=== PATIENT | female | born 1995 | race Caucasian/White ===

== ENCOUNTER 2023-11-10 06:12 | Inpatient (IN) | payer BC, OTHER ==
[2023-11-10] MEDS ORDERED: miSOPROStoL 200 MCG TAB PO PRN (06:27)
[2023-11-10] MEDS ORDERED: CARBOPROST TROMETHAMINE 250 MCG/ML 1 ML AMP IM PRN (06:27)
[2023-11-10] MEDS ORDERED: METHYLERGONOVINE 0.2 MG/ML 1 ML AMP IM PRN (06:27)
[2023-11-10] MEDS ORDERED: TRANEXAMIC 1,000 MG/100ML-NACL 1,000 MG in EMPTY BAG 1 BAG IV PRN (06:27)
[2023-11-10] MEDS ORDERED: OXYTOCIN 10 UNIT/ML 1 ML VIAL IM PRN (06:27)
[2023-11-10] MEDS ORDERED: LIDOCAINE 0.5% (PF) 5 MG/ML (50 ML SDV) SQ PRN (06:27)
[2023-11-10] MEDS ORDERED: TERBUTALINE 1 MG/ML VIAL SQ PRN (06:27)
[2023-11-10 06:40] LABS: Glucose,Whole Blood 86 mg/dL (70-110)
[2023-11-10] MEDS: LACTATED RINGERS 1,000 ML IV SCH ×2 (06:42→19:48)
[2023-11-10] MEDS: OXYTOCIN 30 UNITS/500 ML NS 30 UNIT in SALINE 1 500ML.BAG IV SCH (06:54)
[2023-11-10 07:00] LABS: Basophils # (A) 0.1 k/uL (0-0.2); Basophils % (A) 1 %; Eosinophils # (A) 0.1 k/uL (0-0.7); Eosinophils % (A) 1 %; HCT 44.2 % (34.0-46.0); HGB 14.9 gm/dL (11.4-16.0); Lymphocytes # (A) 2.9 k/uL (1.0-4.8); Lymphocytes % (A) 27 %; MCH 31.8 pg (25.0-35.0); MCHC 33.8 g/dL (31.0-37.0); MCV 94.1 fL (80.0-100.0); Mean Platelet Volume 9.1; Monocytes # (A) 0.7 k/uL (0-1.0); Monocytes % (A) 6 %; Neutrophils # (A) 6.9 k/uL (1.3-7.7); Neutrophils % (A) 64 %; Platelet Count 249 k/uL (150-450); RBC 4.69 m/uL (3.80-5.40); RDW 12.9 % (11.5-15.5); WBC 10.8 k/uL (3.8-10.6)
[2023-11-10] MEDS ORDERED: SODIUM CHLORIDE 0.9% 250 ML BAG ONE (10:10)
[2023-11-10] MEDS ORDERED: fentaNYL (PF) 50 MCG/ML 5 ML AMP ONE (10:10)
[2023-11-10] MEDS ORDERED: ROPIVACAINE 5 MG/ML 30 ML VIAL ONE (10:10)
[2023-11-10] MEDS: CITRIC ACID-SODIUM CITRATE 15 ML CUP PO ONE (15:35)
[2023-11-10] MEDS ORDERED: OXYTOCIN 30 UNITS/500 ML NS BAG IV ONE (15:50)
[2023-11-10] MEDS ORDERED: MORPHINE SULFATE (PF) 0.3 MG/0.3 ML SYR ONE (15:50)
[2023-11-10] MEDS ORDERED: ONDANSETRON 4 MG/2 ML VIAL ONE (15:50)
--- NOTE | 2023-11-10 16:41 | P.OP ---
Date of Procedure: 11/10/23 Preoperative Diagnosis: IUP at 39 weeks, arrest of descent after 2 hours of pushing Postoperative Diagnosis: same Procedure(s) Performed: Primary low-transverse section Anesthesia: epidural Surgeon: Cindy Mccann [employer] Tech #1: Toño Haddad Estimated Blood Loss (ml): 440 IV fluids (ml): 400 Urine output (ml): 100 Pathology: none sent Condition: stable Disposition: observation Indications for Procedure: 28-year-old 1 para 0 admitted this morning for induction of labor secondary to GDM, diet-controlled. Patient was admitted and made good progress through labor advancing to complete dilation. Patient began pushing and after approximately to 2 and half hours no descent of the head was noted with increasing caput formation. Patient was counseled on exam and consideration for primary . Patient and elected to proceed with primary low- transverse section after informed consent. Operative Findings: Viable male was delivered at 1611, weight of 7 pounds 8 ounces, Apgars of 9 and 9 at 1 and 5 minutes respectively. Normal uterus tubes and ovaries were appreciated. noted an occiput transverse presentation Description of Procedure: The patient was prepped and draped in the usual fashion after spinal anesthesia was administered by the anesthesia department. A Pfannenstiel incision was made and extended of the abdominal cavity without difficulty. The bladder peritoneum was elevated and incised and reflected distally. A 2 cm incision was made in the transverse plane of the lower uterine segment to enter the uterus at which time clear fluid was noted. The incision was extended in both directions using the bandage scissors. The head was encountered within the field and delivered up and through the incision where the nose and mouth were thoroughly suctioned. Remainder of the infant was delivered onto the surgical field where the cord was doubly clamped, cut, and the infant was passed for resuscitative measures with weight and Apgars as noted above. The placenta was delivered manually, intact, and was grossly normal with a grossly normal three-vessel cord . The uterus was exteriorized and the interior cavity of the uterus swept of any remaining placental and membranous fragments with a laparotomy sponge. The margins of the incision were grasped with Allis clamps and the incision closed in 2 layers. First layer was a running locking layer of 0 Vicryl from margin to margin followed by a second layer of imbricating 0 Vicryl from margin to margin. Any small points of bleeding were then made hemostatic with the Bovie. Once hemostasis was achieved, the posterior cul-de-sac was suctioned with a guard and the uterine and ovarian findings are as noted above. The uterus was replaced within the abdominal cavity and the gutters swept of any remaining blood fluid or clot. The incision was again reexamined, bleeding was noted from the left- hand side of the uterine incision therefore 1 [id number] suture was placed and hemostasis was noted. Any small point of bleeding were made hemostatic with the Bovie. Once hemostasis was achieved the parietal peritoneum was loosely reapproximated. The layer of muscles were examined and made hemostatic with the Bovie. Attention was then turned to the fascia which was closed with a running stitches of 0 Vicryl proceeding from the lateral edge to the other. The subcutaneous tissues were irrigated, made hemostatic with the Bovie, and reapproximated with a running stitch of 30 Vicryl. The skin was reapproximated with 4-0 Vicryl. Estimated blood loss for the case was approximately 440 mL. All sponge instrument and needle counts are correct. There were no complications. The patient tolerated the procedure well and proceeded to the recovery room in stable condition. Both mother and infant are resting comfortably in recovery.
[2023-11-10] MEDS ORDERED: OXYTOCIN 30 UNITS/500 ML NS 30 UNIT in SALINE 1 500ML.BAG IV SCH (19:06)
[2023-11-10] MEDS ORDERED: SIMETHICONE 80 MG CHEWABLE PO PRN (19:06)
[2023-11-10] MEDS ORDERED: ZOLPIDEM 5 MG TAB PO PRN (19:06)
[2023-11-10] MEDS ORDERED: NALOXONE 0.4 MG/ML 1 ML VIAL IV PRN (19:06)
[2023-11-10] MEDS ORDERED: diphenhydrAMINE 50 MG CAP PO PRN (19:06)
[2023-11-10] MEDS ORDERED: diphenhydrAMINE 25 MG CAP PO PRN (19:06)
[2023-11-10] MEDS ORDERED: diphenhydrAMINE 50 MG/ML 1 ML VIAL IVP PRN (19:06)
[2023-11-10] MEDS: METOCLOPRAMIDE 5 MG/ML 2 ML VIAL IVP PRN (19:38)
[2023-11-10] MEDS: ACETAMINOPHEN IV (For NPO) 1,000 MG in EMPTY BAG 1 BAG IVPB SCH (19:49)
[2023-11-10] MEDS: ACETAMINOPHEN TAB 500 MG TAB PO SCH (19:49)
[2023-11-10] MEDS: IBUPROFEN IV 800 MG in SODIUM CHLORIDE 0.9% 250 ML IV SCH (21:27)
[2023-11-10] MEDS: SENNOSIDES-DOCUSATE SODIUM 1 EACH TAB PO SCH (21:27)
[2023-11-11] MEDS: ONDANSETRON 4 MG/2 ML VIAL IVP PRN (00:20)
[2023-11-11] MEDS: diphenhydrAMINE 50 MG/ML 1 ML VIAL IVP PRN (01:23)
[2023-11-11] MEDS: IBUPROFEN 600 MG TAB PO SCH (01:59)
[2023-11-11 05:28] LABS: Basophils % (A) 0 %; Eosinophils % (A) 0 %; HCT 45.3 % (34.0-46.0); HGB 14.8 gm/dL (11.4-16.0); Lymphocytes # (A) 2.3 k/uL (1.0-4.8); Lymphocytes % (A) 11 %; MCH 31.8 pg (25.0-35.0); MCHC 32.7 g/dL (31.0-37.0); Mean Platelet Volume 8.7; Monocytes # (A) 0.8 k/uL (0-1.0); Monocytes % (A) 4 %; Neutrophils # (A) 16.9 k/uL (1.3-7.7); Neutrophils % (A) 83 %; Platelet Count 228 k/uL (150-450); RBC 4.67 m/uL (3.80-5.40); RDW 12.9 % (11.5-15.5); WBC 20.3 k/uL (3.8-10.6)
--- NOTE | 2023-11-11 08:32 | P.PN ---
Progress Note - Text Progress Note Date: 11/11/23 (3936) Anesthesia Postop day 1 Subjective: Status Post section with Duramorph. Patient seen and examined. Complains of mild pruritus. VAS 4 out of 10. No nausea or vomiting. Gross lower extremity strength intact. Without apparent anesthetic complications. Objective: Vital signs reviewed Heart: Regular Rate Lungs: Good chest excursion Abdomen: Appears nondistended Assessment: Status post section with Duramorph postop day 1 Plan: 1. Continue current care with your medical management. Anticipated end to the duration of the Duramorph around surgery time today. You may see increased pain needs around this time. 2. This note was dictated using [employer] software. Please be advised there is a potential for misspellings or errors in installer helper.
[2023-11-11] MEDS: PRENATAL VIT-IRON-FOLIC ACID 1 EACH TABLET PO SCH (08:52)
--- NOTE | 2023-11-11 09:33 | P.PNOBGPC ---
Subjective - Subjective Principal diagnosis: Postop day #1, primary low-transverse section Interval history: Patient is overall doing well. She is ambulating without difficulty. She is having small voids but was straight cathed early this morning for a large amount. She states her pain is well-controlled. She is breast-feeding without difficulty. Her lochia is minimal to moderate. Patient reports: Reports appetite normal, Reports pain well controlled, Reports ambulating normally : doing well, nursing well Objective - Vital Signs Latest vital signs: Vital Signs Temp Pulse Resp BP Pulse Ox 11/11/23 05:03 15 11/11/23 00:05 99.4 F 67 15 110/68 95 11/10/23 21:03 18 11/10/23 21:00 98.2 F 72 18 110/66 97 11/10/23 18:34 66 16 136/76 100 11/10/23 18:25 74 16 135/74 99 11/10/23 18:10 68 16 140/82 100 11/10/23 17:55 78 16 127/56 97 11/10/23 17:40 74 16 127/71 98 11/10/23 17:25 78 16 116/80 98 11/10/23 17:10 76 16 121/61 98 11/10/23 16:55 82 16 116/59 97 11/10/23 16:40 96.8 F L 82 16 116/59 97 Intake and Output 11/10/23 11/11/23 11/11/23 22:59 06:59 14:59 Intake Total 480 480 Output Total 1560 400 500 Balance -1080 80 -500 Intake: Oral 480 480 Output: Urine 1100 400 500 Uretheral (Franco) 400 500 Output, Quantitative 460 Blood Loss - Exam Extremities: Present: normal, edema Abdomen: Present: normal appearance Incision: Present: normal, dry Uterus: Present: normal, firm - Labs Labs: Abnormal Lab Results - Last 24 Hours (Table) 11/11/23 Range/Units 05:10 WBC 20.3 H (3.8-10.6) k/uL Neutrophils # 16.9 H (1.3-7.7) k/uL Assessment and Plan (1) Term Current Visit: Yes Status: Acute Code(s): Z34.90 - ENCNTR FOR SUPRVSN OF NORMAL , UNSP, UNSP TRIMESTER SNOMED Code(s): 36167098 (2) GDM (gestational diabetes mellitus), class A1 Current Visit: Yes Status: Acute Code(s): O24.410 - GESTATIONAL DIABETES MELLITUS IN , DIET CONTROLLED SNOMED Code(s): 13153464 (3) S/P section Current Visit: Yes Status: Acute Code(s): Z98.891 - HISTORY OF UTERINE SCAR FROM PREVIOUS SURGERY SNOMED Code(s): 530433775 Plan: Patient is doing well postoperatively. Will monitor bladder function and straight cath as needed, patient is counseled on possible need for placement of Franco catheter for bladder rest if unable to void spontaneously. Patient states understanding. Otherwise we will continue routine postoperative care.
[2023-11-11 11:09] VITALS: RESP 16
[2023-11-12 09:06] VITALS: BP 110/62; PULSE 77; TEMP 98.3
--- NOTE | 2023-11-14 08:03 | P.HPOB ---
History of Present Illness H&P Date: 11/10/23 Chief Complaint: IUP at 39 weeks, gestational diabetes 28-year-old 1 para 0 presents to labor delivery for induction of labor. Patient has been receiving routine care which has been slightly complicated by diagnosis of gestational diabetes diet-controlled. Patient is underwent testing for which everything has been normal in nature. Patient notes good movement denies vaginal bleeding loss of fluid. On blood work this patient is a blood type of Review of Systems Constitutional: Denies chills, Denies fatigue, Denies fever Ears, nose, mouth and throat: Denies headache Cardiovascular: Reports leg edema Respiratory: Denies dyspnea Gastrointestinal: Denies nausea, Denies vomiting Genitourinary: Reports Past Medical History Additional Past Medical History / Comment(s): Gestational Diabetes, Occular Migranes History of Any Multi-Drug Resistant Organisms: None Reported Past Surgical History: No Surgical Hx Reported Past Anesthesia/Blood Transfusion Reactions: No Reported Reaction Smoking Status: Never smoker Past Drug Use History: None Reported Medications and Allergies Home Medications Medication Instructions Recorded Confirmed Type Vit No.179/Iron/Folic 1 each PO DAILY 11/10/23 11/10/23 History [ Tablet] Allergies Allergy/AdvReac Type Severity Reaction Status Date / Time No Known Allergies Allergy Verified 11/10/23 06:26 Exam Osteopathic Statement: *. No significant issues noted on an osteopathic structural exam other than those noted in the History and Physical/Consult. Vital Signs Temp Pulse Resp BP Pulse Ox 11/10/23 06:25 97.2 F L 105 H 16 134/76 97 Intake and Output 11/09/23 11/10/23 11/10/23 22:59 06:59 14:59 Other: Weight 76.657 kg Targeted physical exam is performed this date General is well-nourished well- developed female in no acute distress, breathing is nonlabored, heart has a regular rate and rhythm, abdomen is gravid and appropriate for gestational age, on cervical exam she is 3-4/90/-2 station amniotomy was performed and copious clear fluid was obtained. heart tones are noted to be category 1 and she is iron every 3 minutes. Results Result Diagrams: 11/10/23 06:45 Abnormal Lab Results - Last 24 Hours (Table) 11/10/23 Range/Units 06:45 WBC 10.8 H (3.8-10.6) k/uL Assessment and Plan (1) Term Current Visit: Yes Status: Acute Code(s): Z34.90 - ENCNTR FOR SUPRVSN OF NORMAL , UNSP, UNSP TRIMESTER SNOMED Code(s): 04389913 (2) GDM (gestational diabetes mellitus), class A1 Current Visit: Yes Status: Acute Code(s): O24.410 - GESTATIONAL DIABETES MELLITUS IN , DIET CONTROLLED SNOMED Code(s): 26303164 Plan: 28-year-old 1 para 0 at 39 weeks of presents for induction of labor. Patient is admitted and Pitocin induction of labor has begun. Options for analgesia are discussed including Nubain, nitrous, epidural. Patient will consider.
== END 2023-11-12 15:35 | disposition home or self-care (01) | DRG 540 ==
LOC: 4FBP 06:12
PROVIDERS: ADMIT Obstetrics & Gynecology Obstetrics; ATTEND Obstetrics & Gynecology Obstetrics
PROC: 3E033VJ Introduction of Other Hormone into Peripheral Vein, Percutaneous Approach (ICD-10-PCS; 2023-11-10)
PROC: 10D00Z1 Extraction of Products of Conception, Low, Open Approach (ICD-10-PCS; principal; 2023-11-10 06:15)
DX: O24.420 Gestational diabetes mellitus in childbirth, diet controlled (principal); L29.9 Pruritus, unspecified; O62.1 Secondary uterine inertia; O64.8XX0 Obstructed labor due to other malposition and malpresentation, not applicable or unspecified; Z3A.39 39 weeks gestation of pregnancy; Z37.0 Single live birth
CPT/HCPCS: 85025; 86850; 86900; 86901